=== PATIENT | male | born 1955 | race Caucasian/White ===

== ENCOUNTER → 2021-12-08 07:57 | Outpatient (CLI) | payer MEDICARE, SELFPAY ==
[2021-12-08 14:19] LABS: Basophils % 0.5 % (0.1-2.0); Eosinophils # 0.1 K/mm3 (0.0-0.4); Eosinophils % 1.7 % (0.1-12.0); Hematocrit 40.1 % (42.0-52.0); Hemoglobin 12.9 g/dL (14.1-18.0); Lymphocytes # 1.2 K/mm3 (0.7-4.5); Lymphocytes % 21.7 % (10-50); Mean Corpuscular HGB Conc 32.3 g/dL (31.8-35.4); Mean Corpuscular Hemoglobin 28.1 pg (27.0-31.2); Mean Corpuscular Volume 86.9 fl (80-94); Mean Platelet Volume 8.2 fl (7.4-10.4); Monocytes # 0.3 K/mm3 (0.1-1.0); Monocytes % 5.4 % (1.7-9.3); Neutrophils # 3.9 K/mm3 (1.8-7.8); Neutrophils % 70.8 % (37.0-80.0); Platelet Count 258 K/mm3 (142-424); Red Blood Count 4.61 M/mm3 (4.60-6.20); White Blood Count 5.5 K/mm3 (4.8-10.8)
[2021-12-08 14:38] LABS: Chloride 104 mmol/L (98-107); Potassium 4.4 mmoL/L (3.5-5.1); Sodium 139 mmol/L (136-145)
[2021-12-08 14:41] LABS: Alanine Aminotransferase 42 U/L (12-78); Albumin Level 3.8 g/dl (3.5-5.0); Albumin/Globulin Ratio 1.6 (1.1-1.8); Alkaline Phosphatase 93 U/L (38-126); Anion Gap 10.4 mEq/L (5-15); Aspartate Amino Transferase 36 U/L (17-59); Bilirubin,Total 0.4 mg/dl (0.2-1.3); Blood Urea Nitrogen 18 mg/dl (9-20); Calcium 8.3 mg/dl (8.4-10.2); Carbon Dioxide 29 mmol/L (22.0-30.0); Chol/HDL Ratio 4.1 (1-3.5); Cholesterol 132 mg/dl (140-200); Estimated Glomerular Filt Rate 84 ml/min (>60); GFR (African American) 102 ML/MIN (>60); Globulin 2.4 g/dL (1.3-3.2); Glucose 104 mg/dl (74-100); HDL Cholesterol 32 mg/dl (40-60); Total Protein,Serum 6.2 g/dl (6.3-8.2); Triglycerides 113 mg/dl (30-150); VLDL Cholesterol 23 mg/dL (0-40)
[2021-12-08 14:45] LABS: 25-OH Vitamin D, Total 43.6 ng/mL (30-100)
[2021-12-08 14:53] LABS: Direct LDL Cholesterol 76.19 mg/dL (100-129)
[2021-12-08 15:12] LABS: Thyroid Stimulating Hormone 6.58 uIU/mL (0.465-4.68)
[2021-12-08 15:59] LABS: Prostate Specific Ag Screen 3.6 ng/ml (0.0-4.0)
== END ==
PROVIDERS: Visit Provider Pediatrics
DX: Z00.00 Encounter for general adult medical examination without abnormal findings (principal); E78.5 Hyperlipidemia, unspecified; E55.9 Vitamin D deficiency, unspecified; Z12.5 Encounter for screening for malignant neoplasm of prostate
CPT/HCPCS: 36415; 80053; 80061; 82306; 84443; 85025; G0103

== ENCOUNTER → 2021-12-10 10:30 | Outpatient (CLI) | payer MEDICARE, SELFPAY ==
[2021-12-10 10:34] LABS: Microscopic, Urine URINE MICROSCOPIC (MICROSCOPIC)
[2021-12-10 15:15] LABS: Appearance,Urine CLEAR (Clear); Bilirubin,Urine Negative (Negative); Blood, Urine Negative (Negative); Color,Urine YELLOW (Yellow); Glucose,Urine (UA) Negative (Negative); Ketones,Urine Negative (Negative); Leukocyte Esterase,Urine Negative (Negative); Nitrate,Urine Negative (Negative); Protein,Urine Negative (Negative); Specific Gravity, Urine 1.025 (1.005-1.030); Urobilinogen,Urine 0.2 EU/dl (0.2)
[2021-12-10 15:36] LABS: Bacteria,Urine Trace /lpf; RBC,Urine Occasional #/hpf (0-3); Squamous Epithelial Cell,Urine Occasional #/hpf (0-5)
== END ==
PROVIDERS: Visit Provider Pediatrics
DX: E78.5 Hyperlipidemia, unspecified (principal); E55.9 Vitamin D deficiency, unspecified; Z12.5 Encounter for screening for malignant neoplasm of prostate
CPT/HCPCS: 81001; 82043